=== PATIENT | female | born 1990 | race Caucasian/White ===

== ENCOUNTER 2023-09-23 22:50 | Emergency (ER) | payer SELFPAY ==
[2023-09-23] MEDS: Ketorolac 30 MG/ML SDV IVPUSH ONE (23:41)
[2023-09-23] MEDS: Ondansetron 4 MG/2 ML SDV IVPUSH ONE (23:41)
[2023-09-23] MEDS: Sodium Chloride 0.9% 1,000 ML IV ONE (23:41)
[2023-09-23 23:49] LABS: BASOPHILS PERCENT AUTO 0.5 % (0.0-1.0); EOSINOPHILS PERCENT AUTO 0.6 % (1.0-3.0); LYMPHOCYTES PERCENT AUTO 17.3 % (20.5-50.1); MEAN CORPUSCULAR HGB CONC 33.3 g/dL (33.0-35.0); MONOCYTES PERCENT AUTO 8.2 % (2-8); NEUTROPHILS PERCENT AUTO 73.4 % (42.2-75.2); PLATELET COUNT,PLT 273 10^3/uL (150-450); RED BLOOD CELL COUNT 4.84 10^6/uL (4.2-5.4); WHITE BLOOD CELL COUNT,WBC 16.5 10^3/uL (5.0-10.0)
[2023-09-23 23:50] LABS: APPEARANCE,URINE CLEAR (CLEAR); BILIRUBIN,URINE NEGATIVE (NEGATIVE); COLOR,URINE YELLOW (YELLOW); GLUCOSE,URINE NEGATIVE (NEGATIVE); KETONES,URINE 15 (NEGATIVE); LEUKOCYTE ESTERASE,URINE NEGATIVE (NEGATIVE); NITRITE,URINE NEGATIVE (NEGATIVE); OCCULT BLOOD,URINE TRACE-INTACT (NEGATIVE); PH,URINE 6.5 (5.0-9.0); PROTEIN,URINE NEGATIVE (NEGATIVE); UROBILINOGEN,URINE 0.2 mg/dL (0.2-1.0)
[2023-09-23 23:54] LABS: METHAMPHETAMINES,URINE NEGATIVE (NEGATIVE)
[2023-09-23 23:55] LABS: AMPHETAMINES,URINE NEGATIVE (NEGATIVE); BARBITURATES,URINE NEGATIVE (NEGATIVE); BENZODIAZEPINE,URINE NEGATIVE (NEGATIVE); MDMA (ECSTASY), URINE NEGATIVE (NEGATIVE); METHADONE,URINE NEGATIVE (NEGATIVE); OPIATES,URINE NEGATIVE (NEGATIVE); OXYCODONE,URINE NEGATIVE (NEGATIVE); PHENCYCLIDINE,URINE NEGATIVE (NEGATIVE); TCA,URINE NEGATIVE (NEGATIVE)
[2023-09-24] LABS: RBC,URINE 0-5 /HPF (0-5); WBC,URINE 0-5 /HPF (0-5/HPF)
[2023-09-24 00:01] LABS: BACTERIA,URINE FEW /HPF (0-FEW/HPF); EPITHELIAL CELLS,URINE MODERATE /HPF (NOT SEEN); MUCUS,URINE MANY /LPF (NOT SEEN)
[2023-09-24 00:03] LABS: A/G RATIO 1.2; ANION GAP 10.8 mEq/L (7-13); BILIRUBIN TOTAL 0.7 mg/dL (0.2-1.0); BUN/CREATININE RATIO 9.3 (No establ ref range); CALCIUM 8.8 mg/dL (8.5-10.1); CREATININE 0.86 mg/dL (0.55-1.02); EST CRCL DRUG DOSING (CG) 71.29 mL/min; POTASSIUM,K 3.8 mmol/L (3.5-5.1); PROTEIN TOTAL,TP 7.3 g/dL (6.4-8.2)
[2023-09-24 00:06] LABS: LACTIC ACID 0.8 mmol/L (0.4-2.0)
[2023-09-24] MEDS: Take Home: Ondansetron 4 MG Tab.DIS, 5 Tab Pack PO ONE (01:48)
== END 2023-09-24 01:55 | disposition home or self-care (01) ==
LOC: DL.ED 22:50
DX: K52.9 Noninfective gastroenteritis and colitis, unspecified (principal); F17.210 Nicotine dependence, cigarettes, uncomplicated; Z88.8 Allergy status to other drugs, medicaments and biological substances
CPT/HCPCS: 36415; 74176; 80053; 80305-QW; 81001; 81025; 83605; 83690; 85025; 96374; 96375; 99284; 99284-25; J1885; J2405; J7030; Q0162